=== PATIENT | female | born 2005 | race Caucasian/White ===

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

== ENCOUNTER 2024-04-16 19:27 | Emergency (ER) | payer OTHER, SELFPAY ==
[2024-04-16] VITALS (8 sets, daily range): BP systolic 119–153; BP diastolic 65–94; PULSE 67–87; RESP 16; TEMP 36.9; O2SAT 100; BMI 22.6
--- NOTE | 2024-04-16 19:45 | ED.BACK ---
HPI - Back Pain/Injury General Chief Complaint: Back Pain/Injury Stated Complaint: lower abd, back and leg pain Time Seen by Provider: 04/16/24 19:45 Source: patient History of Present Illness HPI Narrative: 18-year-old female with low back pain with left leg pain, bilateral tingling of legs. She recalls having fallen from a horse approximately 3 years ago, no spinal imaging recalled with medical evaluation, has had low back pain intermittent problems since that time. She started running 6 months ago but had to stop after 1 month due to increased low back pain and left leg pain symptoms. She initially was improved after she stopped running activities, but now has recent week or so of increased low back pain left side, left leg pain similar to prior episode, also intermittent numbness left leg greater than right leg. No known fractures, or spinal interventions, no use IV drug use, no fevers or chills, no known cancers. She was recently seen Whavel GONZALEZ with these symptoms, and reports some kind of spinal manipulation, and was prescribed baclofen antispasmodics medication that she feels is not helping. She has not had any imaging of her spine that she can recall, and would prefer imaging Related Data Previous Rx's Medication Instructions Recorded methocarbamol 500 mg tablet 500 mg PO TID rhomboid muscle 04/16/24 strain 7 days #21 tabs prednisone 20 mg tablet 40 mg (2 x 20 mg) PO DAILY 5 days 04/16/24 #10 tabs Allergies Allergy/AdvReac Type Severity Reaction Status Date / Time No Known Drug Allergies Allergy Verified 04/16/24 19:29 Patient History Medical History (Updated 04/16/24 @ 22:07 by Faizan Lopez MD) Healthy adolescent Social History Smoking Status: Never smoker Smoking Status: Never smoker Substance Use Type: does not use Exam Narrative Exam Narrative: GENERAL: Well-developed patient, in mild distress. HEAD: Atraumatic. Normocephalic. EYES: Pupils equal round and reactive. Extraocular motions intact. No scleral icterus. No injection or drainage. ENT: Nose without bleeding, purulent drainage. Throat without erythema, tonsillar hypertrophy or exudate. Airway patent. NECK: Trachea midline. Non tender CARDIOVASCULAR: Regular rate and rhythm without murmurs, gallops, or rubs. RESPIRATORY: Clear to auscultation. Breath sounds equal bilaterally. No wheezes, rales, or rhonchi. GASTROINTESTINAL: Abdomen soft, non-tender, nondistended. EXTREMITIES: No edema or joint tenderness. BACK: No scars or gross deformity, tenderness to left mid lower paraspinal lumbar musculature, no midline tenderness. No gross malalignment, no obvious significant scoliosis. Straight leg raise 60-75? right side without discomfort. Straight leg raise 45? left leg with posterior left thigh pain NEURO: AOx3. SKIN: No rash or erythema of visible areas Initial Vital Signs Initial Vital Signs: Vital Signs Temperature 98.5 F 04/16/24 19:29 Pulse Rate 87 04/16/24 19:29 Respiratory Rate 16 04/16/24 19:29 Blood Pressure 141/81 H 04/16/24 19:29 Pulse Oximetry 100 04/16/24 19:29 Oxygen Delivery Method Room Air 04/16/24 19:29 Course Orders Ordered: ED Orders 04/16/24 19:59 Urine Microscopic Stat 04/16/24 20:54 CT lumbar spine wo con Stat Discontinued Medications Ketorolac Tromethamine (Ketorolac 30 Mg/Ml Vial) 30 mg IM NOW ONE Stop: 04/16/24 20:55 Last Admin: 04/16/24 21:04 Dose: 30 mg Documented By: JASMIN Vital Signs Vital signs: Vital Signs - 8 hr 04/16/24 19:29 04/16/24 19:43 04/16/24 19:44 Temperature 98.5 F Pulse Rate 87 87 Respiratory Rate 16 Blood Pressure 141/81 H 153/94 H Pulse Oximetry 100 100 Oxygen Delivery Method Room Air 04/16/24 19:44 04/16/24 20:00 04/16/24 20:01 Temperature Pulse Rate 85 78 Respiratory Rate Blood Pressure 134/78 Pulse Oximetry 100 100 Oxygen Delivery Method 04/16/24 20:01 04/16/24 20:30 04/16/24 20:30 Temperature Pulse Rate 67 79 Respiratory Rate Blood Pressure 138/75 Pulse Oximetry 100 100 Oxygen Delivery Method 04/16/24 21:00 04/16/24 21:00 04/16/24 21:30 Temperature Pulse Rate 79 73 Respiratory Rate Blood Pressure 119/65 Pulse Oximetry 100 100 Oxygen Delivery Method MDM - Back Pain/Injury Lab Data Attestation: I reviewed the patient's lab results. Labs: Lab Results 04/16/24 Range/Units 19:59 Urine RBC 1-5/hpf (0-5/HPF) Urine WBC 0-1/hpf (0-5/HPF) Ur Squamous Epith Cells 1-5 /hpf (0-5/HPF) Urine Bacteria None seen (None) Ur Culture Indicated? Cult not indicated Vol Urine Centrifuged 10ml (spun) Point of Care Testing Test Results Negative Urine Dip Bedside Urine Glucose Negative Bedside Urine Bilirubin - Negative Bedside Urine Ketone - Negative Urine Specific [place] 1.025 Bedside Urine Occult Blood +++ Bedside Urine pH 6.0 Bedside Urine Protein - Negative Bedside Urine Urobilinogen - Negative Bedside Urine Nitrite - Negative Bedside Urine Leukocytes - Negative Esterase Imaging Data CT Lumbar Spine: Radiologist's Impression: [address] [address] [address] Scan Report Signed Patient: Alexei Wall MR#: [id number] : 2005 Acct:[id number] Age/Sex: 18 / F Date of Service: 04/16/24 Loc: ED Accession Number: [id number] Procedure: CT lumbar spine wo con Ordering Provider: Faizan Lopez MD PROCEDURE: CT LUMBAR SPINE WO CON INDICATIONS: LBP left>Rm tingling numbness LLE>RLE TECHNIQUE: Noncontrast 3 mm thick sections acquired from the T12 level to the sacrum. Sagittal and coronal reformats were constructed. For radiation dose reduction, the following was used: automated exposure control. COMPARISON: None. FINDINGS: Image quality: Excellent. Bones: There is normal bony alignment. There is straightening of the normal lumbar lordosis. Disc spacing is normal. No acute or chronic vertebral body compression fractures. No suspicious lytic or blastic bony lesions. No pars defects. No significant bony degeneration or visible disc bulge. No significant central canal or neural foraminal narrowing. Soft tissues: No retroperitoneal masses or hematomas. Visualized aorta is normal in caliber. IMPRESSION: No acute process in the lumbar spine. Straightening of the normal lumbar lordosis is likely due to muscle spasm. No CT evidence of visible disc bulge. Dictated by: Gogo Garcia M.D. on 04/16/2024 at 21:44 Approved by: Gogo Garcia M.D. on 04/16/2024 at 21:47 MDM Narrative Medical decision making narrative: 18-year-old female with ongoing low back pain, left greater than right, with some left leg pain, tingling numbness sensation to both legs that improved after she stopped running 6 months ago, now increasing frequency bilaeral leg pain and tingling without any running or other activities. Straight leg raise 45? in the left, limited by posterior upper leg pain. No previous imaging. She prefers/requests imaging. Lumbar spine MRI probably the best imaging, but not available now, we discussed x-rays but limited information, increased radiation risks of CT lumbar spine imaging, she would prefer lumbar CT imaging. Urine hCG negative. CT lumbar spine imaging ordered. IM Toradol CT lumbar spine showed some loss of lordosis, no structural abnormalities, see report. Consider trial of prednisone burst for the next few days, [id number] ibuprofen, Robaxin muscle relaxant. Follow up with regular provider, could consider other adjunctive measures such as physical therapy. Follow up with PCP next 2-[address] report given to patient Discharge Plan Departure Patient Disposition: Home Clinical Impression: Low back pain, Sciatica Activity Restrictions/Additional Instructions: Low back pain ongoing, no prior imaging, most recently trying baclofen antispasmodic medication from a clinic visit. Now with left greater than right leg numbness symptoms. CT lumbar spine done tonight, showed no structural problems. Some straightening of the lumbar spine due to muscle spasm. Trial of muscle relaxant Robaxin. Consider stopping the baclofen for now if you want to try this medication. Use ibuprofen for anti-inflammatory pain control effect. Could consider use of prednisone steroid to take for a few days additional anti-inflammatory effect. Consider follow up with your regular doctor in the next 2-3 days, could consider physical therapy another objective treatment measures. If symptoms persist additional imaging with MRI of the lumbar spine might be warranted. Recheck with your regular provider in the next couple of days. Return to this/nearest emergency department for any change worsening symptoms or any concerns prior Prescriptions: New methocarbamol 500 mg tablet 500 mg PO TID 7 Days Qty: 21 0RF prednisone 20 mg tablet 40 mg PO DAILY 5 Days Qty: 10 0RF Referrals: Elia Galarza MD [Primary Care Provider] - Stand Alone Forms: Patient Portal/API
[2024-04-16 20:28] LABS: RBC Urine 1-5/HPF (0-5/HPF); Urine Volume 10mL (spun)
[2024-04-16 20:29] LABS: Bacteria Urine None Seen; Culture Indicated Urine Cult Not Indicated; Squamous Epithelial Cell Urine 1-5 /HPF (0-5/HPF); WBC Urine 0-1/HPF (0-5/HPF)
--- NOTE | 2024-04-16 20:54 | DI.CT.S_ITS ---
PROCEDURE: CT LUMBAR SPINE WO CON INDICATIONS: LBP left>Rm tingling numbness LLE>RLE TECHNIQUE: Noncontrast 3 mm thick sections acquired from the T12 level to the sacrum. Sagittal and coronal reformats were constructed. For radiation dose reduction, the following was used: automated exposure control. COMPARISON: None. FINDINGS: Image quality: Excellent. Bones: There is normal bony alignment. There is straightening of the normal lumbar lordosis. Disc spacing is normal. No acute or chronic vertebral body compression fractures. No suspicious lytic or blastic bony lesions. No pars defects. No significant bony degeneration or visible disc bulge. No significant central canal or neural foraminal narrowing. Soft tissues: No retroperitoneal masses or hematomas. Visualized aorta is normal in caliber. IMPRESSION: No acute process in the lumbar spine. Straightening of the normal lumbar lordosis is likely due to muscle spasm. No CT evidence of visible disc bulge. Dictated by: Gogo Garcia M.D. on 04/16/2024 at 21:44 Approved by: Gogo Garcia M.D. on 04/16/2024 at 21:47
[2024-04-16] MEDS: KETOROLAC 30 MG/ML VIAL IM (21:04)
--- NOTE | 2024-04-18 13:06 | PC.NURSE ---
Patient called in no RX printed or electronically submitted. RX called into [facility] for patient
== END 2024-04-16 22:19 | disposition home or self-care (01) ==
PROVIDERS: Emergency Provider Emergency Medicine; PCP General Practice
DX: M54.42 Lumbago with sciatica, left side (principal)
CPT/HCPCS: 72131; 81003; 81015; 81025; 96372; 99284; J1885

== ENCOUNTER → 2024-04-29 18:37 | Outpatient (CLI) | payer OTHER, SELFPAY ==
--- NOTE | 2024-04-29 18:39 | DI.MRI.S_ITS ---
PROCEDURE: MR LUMBAR SPINE WO CON INDICATIONS: Low back pain, unspecified TECHNIQUE: Noncontrast sagittal T1 spin echo and T2 fast echo, sagittal STIR, and T2 fast spin echo through the lumbar spine. In cases with scoliosis, additional coronal T2 fast spin echo may be performed. COMPARISON: [facility], CT, CT LUMBAR SPINE WO CON, 04/16/2024, 21:06. FINDINGS: Image quality: Excellent. Alignment and Curvature: There is mild straightening of normal lumbar lordosis slightly improved compared to the prior study. Bone Marrow: Marrow is of normal overall signal. No acute vertebral body compression fractures. Spinal Cord: Conus medullaris terminates at the T12-L1 level. Visualized cord demonstrates normal signal and size. Paraspinous Soft Tissues: No paravertebral masses. T12-L1: No significant neuroforaminal or spinal canal stenosis. L1-L2: No significant neuroforaminal or spinal canal stenosis. L2-L3: No significant neuroforaminal or spinal canal stenosis. L3-L4: No significant neuroforaminal or spinal canal stenosis. L4-L5: Minimal bilateral facet arthropathy. No significant neuroforaminal or spinal canal stenosis. L5-S1: Minimal bilateral facet arthropathy. No significant neuroforaminal or spinal canal stenosis. IMPRESSION: Lumbar spine without acute abnormalities. Minimal bilateral facet arthropathy at L4-5 and L5-S1 without significant neuroforaminal or spinal canal stenosis. No significant disc disease/disc bulge identified. Mild straightening of normal lumbar lordosis likely related to patient positioning and/or concurrent muscle spasms. Dictated by: Jose Phan M.D. on 05/02/2024 at 9:05 Approved by: Jose Phan M.D. on 05/02/2024 at 9:08
== END ==
PROVIDERS: PCP General Practice; Referring Provider Family Medicine; Visit Provider Family Medicine
DX: M54.50 Low back pain, unspecified (principal); M62.81 Muscle weakness (generalized)
CPT/HCPCS: 72148